=== PATIENT | female | born 1955 | race Caucasian/White ===

== ENCOUNTER → 2017-01-20 16:25 | Outpatient (CLI) | payer BC ==
[2014-07-31 10:37] VITALS: BMI 29.2
[~2017-01-20 16:25] MED LIST: AIRBORNE PO; BENADRYL25 MG PO; COLACE100 MG PO; ELIQUIS2.5 MG PO; ESTER-C 500 MG1 TAB PO; HYDROCODONE-APA1 TAB PO; MS CONTIN15 MG PO; SENOKOT-S TABLE1 TAB PO
== END | disposition home or self-care (01) ==
LOC: D.MAMMO 09:30
DX: R92.8 Other abnormal and inconclusive findings on diagnostic imaging of breast (principal)

== ENCOUNTER → 2017-04-20 12:43 | Outpatient (CLI) | payer BC ==
[2014-07-31 10:37] VITALS: BMI 29.2
== END | disposition home or self-care (01) ==
LOC: D.MRI 12:43
DX: M25.562 Pain in left knee (principal)

== ENCOUNTER 2017-06-17 05:32 | Day surgery (SDC) | payer BC ==
[2017-06-16 12:14] LABS: HEMATOCRIT 42.3 % (36.0-48.0); HEMOGLOBIN 13.6 g/dL (12-16); MCHC 32.2 g/dL (31.0-37.0); MCV 93.4 fL (80.0-100.0); MEAN PLATELET VOLUME 11.1 fL (7.4-10.4); RBC 4.53 10x6/uL (4.00-5.40); RDW 13.7 % (11.5-14.5); WBC 5.9 10x3/uL (4.8-10.8)
[2017-06-17 07:39] VITALS: BP 118/65; BMI 29.9
[2017-06-17] MEDS ORDERED: HYDROCODONE-APA1 TAB PO (09:59)
--- NOTE | 2017-06-17 14:57 | NUR ---
1115 IV DC WITH CATHER TIP INTACT
--- NOTE | 2017-06-19 07:55 | OP ---
PATIENT NAME: KARMEN BARRAZA MEDICAL RECORD: [id number] :53 LOCATION:[facility] ADMISSION DATE: SURGEON: JERRY ALARCON DO DATE OF OPERATION: 06/17/2017 PREOPERATIVE DIAGNOSIS: Left knee medial meniscal tear. POSTOPERATIVE DIAGNOSIS: Left knee medial meniscal tear. PROCEDURE PERFORMED: Left knee arthroscopy with partial medial meniscectomy. INDICATIONS: Ms. Barraza is a 61-year-old female who presented to my office with symptoms of catching, locking, popping and left knee pain with weightbearing. She had had this for sometime and x-ray did not show extensive osteoarthritis. So, an MRI was done and MRI showed a medial meniscal tear in the posterior horn. Once this was done, a long conversation was had with the patient due to her age that the posterior horn of the medial meniscus, we could trim it out and get those symptoms resolved. She was in agreement to this and verbally consented to the procedure where the risks and benefits. Once this was done, the patient was scheduled. SURGEON: Jerry Alarcon DO SUPERVISOR CIGAR MAKING MACHINE: Yaima Levine, advance nurse practitioner. DESCRIPTION OF PROCEDURE: The patient was taken to the operative suite, laid in supine position, given general anesthetic and 2 grams of Ancef preoperatively. Left leg was prepped and draped. A timeout was performed, everyone was in agreement that the left leg was correct leg, the patient was correct patient and we are doing the correct procedure and she was consented for. Once this was done, the left knee was flexed and 4 mL of 0.5% Marcaine were injected into each of the proposed portal sites of the anterior, medial and lateral portals. Once this was done, the lateral portal was established with an 11-blade scalpel and then a trocar was placed into the knee. The knee was extended and the trocar was put into the suprapatellar pouch. The scope was then placed in the knee and the suprapatellar pouch was then inspected and no loose bodies were seen. The lateral gutter was then viewed and no loose bodies were seen there and the medial gutter was seen. The knee was then flexed and medial compartment was encountered. A medial portal was then established with the 11-blade scalpel and a trocar and probe were entered in the knee. The posterior horn of the medial meniscus was viewed seeing a meniscal tear in the posterior horn, seeing it probed. Then the knee was very tight and cannot access the posterior portion of the medial compartment very easily. We are going to change out the shaver to the Torpedo shaver and it being smaller as well as a smaller arthroscopy instruments for viewing, the knee scope continued. The ACL was seen to be in good position and not torn. The lateral compartment was then entered by oxmkgs-dw-ubju in the knee. The lateral meniscus was probed and not seen to have any tears and very stable. Medial compartment was then entered once again, the valgus stress was placed on the knee. We were able to get the smaller instruments in there and the tear was chewed out using a straight small biter as well as a Torpedo shaver. Once this was done and shaved back to a stable position and the knee was then brought into extension and the suprapatellar pouch was encountered again. The knee was brought into flexion, seeing that the patella tracked well in the trochlea. Once this was done, the water was turned off and suction was turned on to bring out any excess fluid in the knee. The OPERATIVE REPORT [id number] KARMEN BARRAZA portal sites were then closed using 4-0 Monocryl in inverted interrupted fashion and Steri-Strips, Adaptic, 4 x 4s, ABD, Webril, and MARLEEN wraps were placed on the knee and MONICA hose stockings placed up to the knee. The blood loss was minimal. The patient was awakened and taken to recovery in stable condition. TRANSINT:[id number] Voice Confirmation ID: [id number] DOCUMENT ID: [id number] JERRY ALARCON DO at 0755 CC: [id number] DICTATION DATE: 06/17/17 0958 UG DESIGNER: 06/17/17 1244 [facility] 06/17/17 [place] [id number] [place] [id number]
== END 2017-06-17 11:45 | disposition home or self-care (01) ==
LOC: D.OPS 05:32 → D.PAN 08:15 → D.OPS 09:00
PROVIDERS: Anesthesiology
DX: S83.242A Other tear of medial meniscus, current injury, left knee, initial encounter (principal); K21.9 Gastro-esophageal reflux disease without esophagitis; Z87.891 Personal history of nicotine dependence; Z01.812 Encounter for preprocedural laboratory examination

== ENCOUNTER → 2018-07-03 14:54 | Outpatient (CLI) | payer BC ==
[2018-07-03 18:05] LABS: BASOPHILS 0.5 % (0-2); EOSINOPHILS 3.3 % (0-7); HEMATOCRIT 42.9 % (36.0-48.0); HEMOGLOBIN 13.6 g/dL (12-16); IMMATURE GRANULOCYTES 0.5 % (0-5); MCH 29.6 pg (26.0-34.0); MCHC 31.7 g/dL (31.0-37.0); MCV 93.5 fL (80.0-100.0); MEAN PLATELET VOLUME 11.7 fL (7.4-10.4); MONOCYTES 8.7 % (2-11); PLATELET COUNT 354 10x3/uL (130-400); RBC 4.59 10x6/uL (4.00-5.40); RDW 13.3 % (11.5-14.5); WBC 5.8 10x3/uL (4.8-10.8)
[2018-07-03 18:16] LABS: CALC OSMOLALITY 287 mosm/kg (275-300); CALCIUM 8.9 mg/dL (8.5-10.1); CARBON DIOXIDE 28.3 mmol/L (21.0-32.0); CHLORIDE - SERUM 105 mmol/L (98-107); CREATININE - SERUM 0.8 mg/dL (0.6-1.3); GLUCOSE 85 mg/dL (74-106); POTASSIUM - SERUM 4.4 mmol/L (3.5-5.1); SODIUM 144 mmol/L (136-145); UREA NITROGEN 18 mg/dL (7-18); eGFR NON AFRICAN AMERICAN 77 mL/min (90-120)
[2018-07-03 18:19] LABS: C-REACTIVE PROTEIN < 0.2 mg/dL (0.0-0.9)
[2018-07-03 19:12] LABS: ERYTHROCYTE SEDIMENTATION RATE 6 mm/hr (0-30)
== END | disposition home or self-care (01) ==
LOC: D.LABREF 14:54
PROVIDERS: Orthopaedic Surgery
DX: M25.561 Pain in right knee (principal)

== ENCOUNTER → 2018-07-14 09:40 | Outpatient (CLI) | payer BC | END | disposition home or self-care (01) | LOC: D.NM 09:40 | DX: M17.12 Unilateral primary osteoarthritis, left knee (principal) ==

== ENCOUNTER → 2018-08-10 12:02 | Outpatient (CLI) | payer BC | END | disposition home or self-care (01) | LOC: D.LABREF 12:02 | DX: M17.12 Unilateral primary osteoarthritis, left knee (principal); Z11.8 Encounter for screening for other infectious and parasitic diseases ==

== ENCOUNTER 2018-08-23 10:00 | Inpatient (IN) | payer BC ==
[~2018-08-23] VITALS: Ht 162.6 cm; Wt 76.8 kg
--- NOTE | ~2018-08-23 | MORECARE ---
CASE MANAGEMENT DISCHARGE SUMMARY PATIENT: KARMEN ROA UNIT: [id number] ADM DATE: 08/30/18 AGE: 63 : 54 SEX: F ROOM/BED: D.2211 AUTHOR: KINGDOC PHYSICIAN: REFERRING PHYSICIAN: FABIOLA ALARCON DO DATE OF SERVICE: 09/01/18 Discharge Plan Patient Name: KARMEN ROA Facility: [facility]:[place] : 1955 Planned Disposition: Home Health Service Anticipated Discharge Date: Discharge Date: Expected LOS: Initial Reviewer: [email or web address] Initial Review Date: 08/30/2018 Generated: 09/01/18 1:19 pm Comments DCP- Discharge Planning Updated by [email or web address]: Martha Figueroa on 09/01/18 11:[address] Patient Name: KARMEN ROA Admission Status: Elective Accout number: [id number] Admission Date: 08-30-2018 : 1955 Admission Diagnosis: Attending: FABIOLA ALARCON Current LOS: 2 Anticipated DC Date: Planned Disposition: Primary Insurance: [employer] TRUE BLUE PPO Discharge Planning Comments: CM MET WITH PATIENT TO ASSESS DISCHARGE PLANNING NEEDS. PATIENT LIVES INDEPENDENTLY AT HOME WHERE SHE PLANS TO RETURN AT DISCHARGE. SHE WILL NEED HOME HEALTH BECAUSE HER IS UNABLE TO TAKE HER TO OP PT. SHE HAS A CPM, BSC, ICE MACHINE AND WALKER. SHE STATED HER WILL BE THE ONE TO DRIVE HER HOME AT DC. HER HOME IS HANDICAP ASSESSABLE. GALE [facility] I WILL SEND REFERRAL. I SPOKE WITH LILY AT [facility]. CM TO ASSIST WITH DC PLANNING NEEDED Insulation Machine Operator: Martha Figueroa DCPIA - Discharge Planning Initial Assessment Updated by [id number]: Martha Figueroa on 09/01/18 12:07 pm * Is the patient Alert and Oriented? Yes * PCP JAI * Pharmacy [address] * Preadmission Environment Home with Family * ADLs Independent * Equipment Bedside Commode Rolling Walker * Other Equipment CPM, ICE MACHINE * List name and contact numbers for known caregivers / representatives who currently or will assist patient after discharge: BILL * Verbal permission to speak to the caregivers and representatives has been obtained from the patient. Yes * Community resources currently utilized None * Additional services required to return to the preadmission environment? Yes * Can the patient safely return to the preadmission environment? Yes * Has this patient been hospitalized within the prior 30 days at any hospital? No External Providers External Provider: [facility] Next Contact Date: Service Request Date: Service Type: Resolution: Reviewer: Comments: Last DP export: 09/01/18 11:10 Patient Name: KARMEN ROA Page [phone] at 1219 All edits/amendments must be made on the electronic document DICTATION DATE: 09/01/181218 MARKET RESEARCH ASSISTANT: QUAN 09/01/18 1219 RPT#: [id number] DC DATE: STATUS: ADM IN [facility] [address] [place] [address] END OF REPORT
--- NOTE | ~2018-08-23 | OP ---
PATIENT NAME: KARMEN BARRAZA MEDICAL RECORD: [id number] :53 LOCATION:[id number] ADMISSION DATE:08/30/18 SURGEON: JERRY ALARCON DO DATE OF OPERATION: 08/30/2018 PROCEDURE PERFORMED: Left total knee arthroplasty. PREOPERATIVE DIAGNOSIS: Severe end-stage left knee osteoarthritis. POSTOPERATIVE DIAGNOSIS: Severe end-stage left knee osteoarthritis. INDICATIONS: Ms. Barraza is a 63-year-old female who presented to my office sometime approximately 18 months ago with left knee pain. She underwent an arthroscopy for having meniscal tears and showed to be degenerative tears. 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 We have tried all manner of injections and bracing to no avail. She was tired of affecting her activities of daily living. She is very active. She shows horses and she said she was tired of it and wanted something done surgically to correct it, tired of the pain and stiffness. I informed her of the risks and benefits including damage to nerves and vessels, need for further surgery, infection and bleeding. She was okay with those risks and consented to the procedure. SURGEON: Jerry Alarcon DO DESCRIPTION OF PROCEDURE: The patient was given a block by anesthesia in the preoperative area and taken to the operative suite, laid in supine position, given 2 grams Ancef and 80 mg of gentamicin preoperatively. A timeout was performed and everyone was in agreement with the correct side, site, patient and procedure. The left leg was prepped and draped and then the incision was marked out in the anterior knee. Ioban was placed over that. The incision began down with a 10 blade down to the capsule coagulating all vessels with Aquamantys. The capsulotomy was then performed, medial parapatellar approach with a fresh 10-blade. The knee was then everted. Some of the fat pad was removed and the patella was milled down to accommodate the thin patella poly. The knee was then flexed up and a drill was used to enter the femoral canal and then the distal femur was cut. The tibia was then exposed and the cutting block was set and the tibia was cut. This was removed. The menisci were removed, medial and lateral and any bleeding was coagulated at that time with the Aquamantys. The 10 extension block fit very well and the knee was flexed up. The femur was measured to be 62.5. A 4-in-1 cutting block was put on and the femur was cut. The trial was then put on the poly and the tray. Tibial tray was floated in and ranged and rotation was marked. The patella was then drilled as were the lug holes through the femoral trial. All this was removed and the tibia was prepped. It sized to be a 71 tibial tray. This was drilled and punched and the extra holes were punched in the tibia with a spike. Cement was then placed in the tibia and on the tibial implant. This was impacted in place. Excess cement was removed. The femur was then put on and a 10 poly was put in between. The knee was brought to extension. The patella was put on with cement. A patellar screw was put on the patella to hold it while the cement dried and excess cement was removed at that time from the patella. Once the cement had dried, knee was ranged and the 10 fit very well. The 12 was trialed, but we could not fit, so we went with the 10, anterior stabilized. We got this poly in, E poly, anterior stabilized bearing and the knee was thoroughly irrigated and tobramycin and vancomycin were placed in the knee as well as Surgicel beads. The capsule was then closed with #2 Ethibond in a adfctj-ku-mjdaz fashion and then on top of the OPERATIVE REPORT [id number] KARMEN BARRAZA capsule was placed more of the same tobramycin, vancomycin powder in the Surgicel beads. The skin was closed with 2-0 Vicryl in inverted interrupted fashion and a Zipline was placed on the knee. Adaptic, 4 x 4's, ABD, Webril, Robinson wrap and MONICA hose stockinette were then placed on the knee. The patient was awakened and taken to recovery in stable condition. COMPLICATIONS: None. BLOOD LOSS: Approximately 200 mL. TRANSINT:[id number] Voice Confirmation ID: [id number] DOCUMENT ID: [id number] JERRY ALARCON DO at 1554 CC: [id number] DICTATION DATE: 08/30/18 6930 RESIDENTIAL CHILD CARE COUNSELOR: 08/30/18 1214 [facility] [place] [address]
--- NOTE | ~2018-08-23 | MORECARE ---
CASE MANAGEMENT DISCHARGE SUMMARY PATIENT: KARMEN ROA UNIT: [id number] ADM DATE: 08/30/18 AGE: 63 : 53 SEX: F ROOM/BED: D.2211 AUTHOR: JACKSON MALIK PHYSICIAN: REFERRING PHYSICIAN: FABIOLA ALARCON DO DATE OF SERVICE: 09/04/18 Discharge Plan Patient Name: KARMEN ROA Facility: [facility]:[place] : 1955 Planned Disposition: Home Health Service Anticipated Discharge Date: Discharge Date: 09/02/2018 Expected LOS: Initial Reviewer: [email or web address] Initial Review Date: 08/30/2018 Generated: 09/04/18 3:58 pm Comments DCP- Discharge Planning Updated by [email or web address]: Martha Figueroa on 09/01/18 12:[address] CHANELL FROM [facility] CALLED AND STATED THAT THE PATIENT WILL BE RESPONSIBLE FOR 20% OF EACH VISIT. THE COST WILL BE $33 PER VISIT. TOLD THE PATIENT THAT AND SHE WAS OK WITH IT. ORDER SENT TO [facility]. THEY WILL START ON 09/04 CM WILL CONTINUE TO FOLLOW AND ASSIST WITH DC PLANNING DCP- Discharge Planning Updated by [email or web address]: Martha Figueroa on 09/01/18 11:[address] Patient Name: KARMEN ROA Admission Status: Elective Accout number: [id number] Admission Date: 08-30-2018 : 1955 Admission Diagnosis: Attending: FABIOLA ALARCON Current LOS: 2 Anticipated DC Date: Planned Disposition: Primary Insurance: [employer] TRUE BLUE PPO Discharge Planning Comments: CM MET WITH PATIENT TO ASSESS DISCHARGE PLANNING NEEDS. PATIENT LIVES INDEPENDENTLY AT HOME WHERE SHE PLANS TO RETURN AT DISCHARGE. SHE WILL NEED HOME HEALTH BECAUSE HER IS UNABLE TO TAKE HER TO OP PT. SHE HAS A CPM, BSC, ICE MACHINE AND WALKER. SHE STATED HER WILL BE THE ONE TO DRIVE HER HOME AT DC. HER HOME IS HANDICAP ASSESSABLE. GALE WITH [facility] I WILL SEND REFERRAL. I SPOKE WITH LILY AT [facility]. CM TO ASSIST WITH DC PLANNING NEEDED Scientific Programmer: Martha Figueroa DCPIA - Discharge Planning Initial Assessment Updated by [email or web address]: Martha Figueroa on 09/01/18 12:07 pm * Is the patient Alert and Oriented? Yes * PCP JAI * Pharmacy [address] * Preadmission Environment Home with Family * ADLs Independent * Equipment Bedside Commode Rolling Walker * Other Equipment CPM, ICE MACHINE * List name and contact numbers for known caregivers / representatives who currently or will assist patient after discharge: REYMUNDO * Verbal permission to speak to the caregivers and representatives has been obtained from the patient. Yes * Community resources currently utilized None * Additional services required to return to the preadmission environment? Yes * Can the patient safely return to the preadmission environment? Yes * Has this patient been hospitalized within the prior 30 days at any hospital? No Last DP export: 09/01/18 12:24 Patient Name: KARMEN ROA Page [phone] at 1458 All edits/amendments must be made on the electronic document DICTATION DATE: 09/04/181456 PRODUCT SAFETY AND STANDARDS ENGINEER: QUAN 09/04/181456 RPT#: [id number] DC DATE:09/02/18 STATUS: DIS IN [facility] [address] [place] [address] END OF REPORT
--- NOTE | ~2018-08-23 | MORECARE ---
CASE MANAGEMENT DISCHARGE SUMMARY PATIENT: KARMEN ROA UNIT: [id number] ADM DATE: 08/30/18 AGE: 63 : 53 SEX: F ROOM/BED: D.2211 AUTHOR: JACKSON MALIK PHYSICIAN: REFERRING PHYSICIAN: FABIOLA ALARCON DO DATE OF SERVICE: 09/01/18 Discharge Plan Patient Name: KARMEN ROA Facility: [facility]:[place] : 1955 Planned Disposition: Home Health Service Anticipated Discharge Date: Discharge Date: Expected LOS: Initial Reviewer: [email or web address] Initial Review Date: 08/30/2018 Generated: 09/01/18 2:24 pm Comments DCP- Discharge Planning Updated by [email or web address]: Martha Figueroa on 09/01/18 12:[address] CHANELL FROM [facility] CALLED AND STATED THAT THE PATIENT WILL BE RESPONSIBLE FOR 20% OF EACH VISIT. THE COST WILL BE $33 PER VISIT. TOLD THE PATIENT THAT AND SHE WAS OK WITH IT. ORDER SENT TO [facility]. THEY WILL START ON 09/04 CM WILL CONTINUE TO FOLLOW AND ASSIST WITH DC PLANNING DCP- Discharge Planning Updated by [email or web address]: Martha Figueroa on 09/01/18 11:[address] Patient Name: KARMEN ROA Admission Status: Elective Accout number: [id number] Admission Date: 08-30-2018 : 1955 Admission Diagnosis: Attending: FABIOLA ALARCON Current LOS: 2 Anticipated DC Date: Planned Disposition: Primary Insurance: [employer] CROSS TRUE BLUE PPO Discharge Planning Comments: CM MET WITH PATIENT TO ASSESS DISCHARGE PLANNING NEEDS. PATIENT LIVES INDEPENDENTLY AT HOME WHERE SHE PLANS TO RETURN AT DISCHARGE. SHE WILL NEED HOME HEALTH BECAUSE HER IS UNABLE TO TAKE HER TO OP PT. SHE HAS A CPM, BSC, ICE MACHINE AND WALKER. SHE STATED HER WILL BE THE ONE TO DRIVE HER HOME AT DC. HER HOME IS HANDICAP ASSESSABLE. GALE WITH [facility] I WILL SEND REFERRAL. I SPOKE WITH LILY AT [facility]. CM TO ASSIST WITH DC PLANNING NEEDED Administrative Personal Assistant: Martha Figueroa DCPIA - Discharge Planning Initial Assessment Updated by [email or web address]: Martha Figueroa on 09/01/18 12:07 pm * Is the patient Alert and Oriented? Yes * PCP JAI * Pharmacy [address] * Preadmission Environment Home with Family * ADLs Independent * Equipment Bedside Commode Rolling Walker * Other Equipment CPM, ICE MACHINE * List name and contact numbers for known caregivers / representatives who currently or will assist patient after discharge: REYMUNDO * Verbal permission to speak to the caregivers and representatives has been obtained from the patient. Yes * Community resources currently utilized None * Additional services required to return to the preadmission environment? Yes * Can the patient safely return to the preadmission environment? Yes * Has this patient been hospitalized within the prior 30 days at any hospital? No Last DP export: 09/01/18 11:19 Patient Name: KARMEN ROA Page 50224 at 1324 All edits/amendments must be made on the electronic document DICTATION DATE: 09/01/18 132 METAL TUBE CUTTER: QUAN 09/01/18 1324 RPT#: [id number] DC DATE: STATUS: ADM IN [facility] [address] [place] [address] END OF REPORT
--- NOTE | ~2018-08-23 | MORECARE ---
CASE MANAGEMENT DISCHARGE SUMMARY PATIENT: KARMEN ROA UNIT: [id number] ADM DATE: 08/30/18 AGE: 63 : 53 SEX: F ROOM/BED: D.2211 AUTHOR: KINGDOC PHYSICIAN: REFERRING PHYSICIAN: FABIOLA ALARCON DO DATE OF SERVICE: 09/01/18 Discharge Plan Patient Name: KARMEN ROA Facility: [facility]:[place] : 1955 Planned Disposition: Home Health Service Anticipated Discharge Date: Discharge Date: Expected LOS: Initial Reviewer: [email or web address] Initial Review Date: 08/30/2018 Generated: 09/01/18 1:10 pm Comments DCP- Discharge Planning Updated by [email or web address]: Martha Figueroa on 09/01/18 11:[address] Patient Name: KARMEN ROA Admission Status: Elective Accout number: [id number] Admission Date: 08-30-2018 : 1955 Admission Diagnosis: Attending: FABIOLA ALARCON Current LOS: 2 Anticipated DC Date: Planned Disposition: Primary Insurance: [id number] TRUE BLUE PPO Discharge Planning Comments: CM MET WITH PATIENT TO ASSESS DISCHARGE PLANNING NEEDS. PATIENT LIVES INDEPENDENTLY AT HOME WHERE SHE PLANS TO RETURN AT DISCHARGE. SHE WILL NEED HOME HEALTH BECAUSE HER IS UNABLE TO TAKE HER TO OP PT. SHE HAS A CPM, BSC, ICE MACHINE AND WALKER. SHE STATED HER WILL BE THE ONE TO DRIVE HER HOME AT DC. HER HOME IS HANDICAP ASSESSABLE. GALE WITH [facility] I WILL SEND REFERRAL. I SPOKE WITH LILY AT [facility]. CM TO ASSIST WITH DC PLANNING NEEDED Assembler Filters: Martha Figueroa DCPIA - Discharge Planning Initial Assessment Updated by [email or web address]: Martha Figueroa on 09/01/18 12:07 pm * Is the patient Alert and Oriented? Yes * PCP JAI * Pharmacy [address] * Preadmission Environment Home with Family * ADLs Independent * Equipment Bedside Commode Rolling Walker * Other Equipment CPM, ICE MACHINE * List name and contact numbers for known caregivers / representatives who currently or will assist patient after discharge: BILL * Verbal permission to speak to the caregivers and representatives has been obtained from the patient. Yes * Community resources currently utilized None * Additional services required to return to the preadmission environment? Yes * Can the patient safely return to the preadmission environment? Yes * Has this patient been hospitalized within the prior 30 days at any hospital? No Patient Name: KARMEN ROA Page 36995 at 1210 All edits/amendments must be made on the electronic document DICTATION DATE: 09/01/181208 ELECTRICIAN APPRENTICE POWERHOUSE: QUAN 09/01/181208 RPT#: [id number] DC DATE: STATUS: ADM IN [facility] [address] [place] [address] END OF REPORT
[2018-08-23 11:14] LABS: BASOPHILS 0.5 % (0-2); HEMATOCRIT 43.8 % (36.0-48.0); HEMOGLOBIN 14.2 g/dL (12-16); IMMATURE GRANULOCYTES 0.4 % (0-5); LYMPHOCYTES 31.5 % (15-50); MCH 29.5 pg (26.0-34.0); MCHC 32.4 g/dL (31.0-37.0); MCV 91.1 fL (80.0-100.0); MEAN PLATELET VOLUME 11.2 fL (7.4-10.4); MONOCYTES 8.6 % (2-11); PLATELET COUNT 320 10x3/uL (130-400); RBC 4.81 10x6/uL (4.00-5.40); RDW 13.3 % (11.5-14.5); WBC 5.7 10x3/uL (4.8-10.8)
[2018-08-23 11:21] LABS: APPEARANCE CLEAR (CLEAR); COLOR YELLOW (YELLOW); SPECIFIC GRAVITY 1.015 (1.005-1.020)
[2018-08-23 11:22] LABS: BILIRUBIN NEGATIVE (NEGATIVE); GLUCOSE NEGATIVE (NEGATIVE); KETONE NEGATIVE (NEGATIVE); NITRITE NEGATIVE (NEGATIVE); PROTEIN NEGATIVE (NEGATIVE); UROBILINOGEN NORMAL (NORMAL)
[2018-08-23 11:24] LABS: INR 0.94 (0.85-1.17); PROTIME 12.1 SECONDS (11.6-15.0)
[2018-08-23 11:28] LABS: ANION GAP 14.6 mmol/L (8-16); CALCIUM 8.7 mg/dL (8.5-10.1); CARBON DIOXIDE 27.5 mmol/L (21.0-32.0); CREATININE - SERUM 0.9 mg/dL (0.6-1.3); POTASSIUM - SERUM 4.1 mmol/L (3.5-5.1)
[2018-08-30 06:21] VITALS: BP 134/71; BMI 29.2
[2018-08-30 19:24] VITALS: BP 145/61; Ht 162.6 cm; Wt 76.8 kg
[2018-08-30 20:00] VITALS: BP 108/53
[2018-08-31] VITALS (7 sets, daily range): BP systolic 93–127; BP diastolic 46–63
[2018-08-31 05:16] LABS: HEMATOCRIT 34.8 % (36.0-48.0); MCH 28.6 pg (26.0-34.0); MCHC 31.6 g/dL (31.0-37.0); MCV 90.4 fL (80.0-100.0); MEAN PLATELET VOLUME 11.2 fL (7.4-10.4); RBC 3.85 10x6/uL (4.00-5.40); RDW 13.5 % (11.5-14.5); WBC 9.5 10x3/uL (4.8-10.8)
[2018-09-01] VITALS: BP 119/55
[2018-09-01 04:00] VITALS: BP 149/63
[2018-09-01 05:20] LABS: HEMATOCRIT 35.8 % (36.0-48.0); HEMOGLOBIN 11.2 g/dL (12-16); MCH 28.8 pg (26.0-34.0); MCHC 31.3 g/dL (31.0-37.0); MEAN PLATELET VOLUME 11.2 fL (7.4-10.4); RBC 3.89 10x6/uL (4.00-5.40); RDW 13.8 % (11.5-14.5); WBC 8.8 10x3/uL (4.8-10.8)
[2018-09-01 08:22] VITALS: BP 108/57
[2018-09-01 12:20] VITALS: BP 115/63
[2018-09-01 15:52] VITALS: BP 117/52
[2018-09-01 20:00] VITALS: BP 134/67
[2018-09-02] VITALS: BP 119/56
[2018-09-02 04:00] VITALS: BP 123/82
[2018-09-02] MEDS ORDERED: OXYCODONE HCL5 M1 PO (08:25)
[2018-09-02] MEDS ORDERED: VISTARIL50 MG PO (08:25)
[2018-09-02] MEDS ORDERED: KEFLEX500 MG PO (08:26)
[2018-09-02] MEDS ORDERED: BAYER CHEWABLE81 MG PO (08:26)
[2018-09-02 08:30] VITALS: BP 142/65
== END 2018-09-02 14:13 | disposition home health service (06) | DRG 470 ==
LOC: D.SDCHOLD 10:00 → D.MS 08-30 05:00 → D.SDCHOLD 08-30 07:30 → D.MS 08-30 13:30
PROVIDERS: Orthopaedic Surgery
PROC: 0SRD0JZ Replacement of Left Knee Joint with Synthetic Substitute, Open Approach (ICD-10-PCS; principal; 2018-08-30 07:30)
DX: M17.12 Unilateral primary osteoarthritis, left knee (principal); B18.2 Chronic viral hepatitis C

== ENCOUNTER → 2018-12-04 15:20 | Outpatient (CLI) | payer BC ==
[2018-08-30 19:24] VITALS: BMI 29.0
[~2018-12-04 15:20] MED LIST changes: +BAYER CHEWABLE81 MG PO; +KEFLEX500 MG PO; +OXYCODONE HCL5 M1 PO; +VISTARIL50 MG PO
== END | disposition home or self-care (01) ==
LOC: D.US 15:20
PROVIDERS: ATTEND Orthopaedic Surgery
DX: R22.42 Localized swelling, mass and lump, left lower limb (principal)

== ENCOUNTER → 2019-03-27 09:57 | Outpatient (CLI) | payer BC ==
[2018-08-30 19:24] VITALS: BMI 29.0
== END | disposition home or self-care (01) ==
LOC: D.MRI 09:57
PROVIDERS: ATTEND Orthopaedic Surgery
DX: M54.16 Radiculopathy, lumbar region (principal)